=== PATIENT | female | born 1965 | race Caucasian/White ===

== ENCOUNTER 2016-07-07 22:10 | Emergency (ER) | payer OTHER ==
[~2016-07-07] VITALS: Ht 165.1 cm; Wt 86.2 kg
--- NOTE | 2016-07-08 01:24 | ED NECK/BACK PAIN COMPLAINT ---
History of Present Illness General Chief Complaint: General Adult Stated Complaint: "LT LOWER BACK PAIN RADIATES TO LT LEG X1DY" Source: patient Exam Limitations: no limitations Vital Signs & Intake/Output Vital Signs & Intake/Output Vital Signs Date Time Temp Pulse Resp B/P Pulse O2 O2 Flow FiO2 Ox Delivery Rate 07/08 0313 97.7 77 18 114/55 96 Room Air 07/08 0013 98.0 84 18 145/79 98 Room Air 07/07 2215 98.7 79 20 152/87 100 Room Air ED Intake and Output 07/08 0000 07/07 1200 Intake Total Output Total Balance Patient 190 lb Weight Allergies Coded Allergies: aspirin (Intermediate, HIVES 07/07/16) Reconcile Medications Diclofenac Sodium 75 MG TABLET.DR 1 TAB PO BID PRN PAIN Metaxalone (Skelaxin) 800 MG TABLET 1 TAB PO TID PRN BACK PAIN/SPASMS Oxycodone HCl/Acetaminophen (Percocet 5-325 MG Tablet) 5 MG-325 MG TABLET 1-2 TAB PO Q6P PRN pain Triage Note: TRIAGE: PT TO ER C/C L FLANK PAIN, ONSET YESTERDAY, INTERMITTENT SINCE ONSET BUT NOW CONSTANT X COUPLE HOURS. REPORTS "A LITTLE BIT OF NAUSEA" BUT DENIES VOMITING. -ABD PAIN. -URINARY S/S. REPORTS HX OF KIDNEY STONES, FEELS SIMILIAR. Triage Nurses Notes Reviewed? yes HPI: Patient presents for evaluation of a left lower back pain occasionally radiates to the posterior thigh. Patient's pain began rather abruptly yesterday. It has been constant severe and sharp and stabbing in nature. She tried Tylenol without relief. Patient's pain seems to get worse with lying down. There has been no associated fever, cold symptoms, incontinence, IV drug abuse, history of cancer or saddle paresthesias. The patient took Tylenol with no significant improvement (last dose about 6 PM). Pain continues here in the emergency department and is described as severe. Past History Travel History Traveled to [place] past 21 day No Medical History Any Pertinent Medical History? 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 No Review of Systems Review of Systems Constitutional: Reports: no symptoms. Eyes: Reports: no symptoms. Ears, Nose, Throat, Mouth: Reports: no symptoms. Respiratory: Reports: no symptoms. Cardiovascular: Reports: no symptoms. Gastrointestinal/Abdominal: Reports: no symptoms. Musculoskeletal: Reports: see HPI. Skin: Reports: no symptoms. Neurological/Psychological: Reports: no symptoms. All Other Systems: Reviewed and Negative Physical Exam Physical Exam Neck: SEE BELOW Comments: Gen.: Well-nourished, well-developed, no acute respiratory distress. Head: Normocephalic, atraumatic. Eyes: Normal inspection bilaterally Ears: Normal inspection bilaterally Nose: Normal inspection Throat/mouth : Moist mucosa Neck: Supple, full range of motion, no goiter Heart: Regular rate and rhythm Lungs: Quiet respirations Back: Normal range of motion with pain, mild tenderness over the left paraspinal musculature, nontender over the lumbosacral spine. No apparent rashes erythema or soft tissue swelling. Abdomen: Soft, nontender, nondistended, normal bowel sounds Extremities: Normal range of motion grossly, equal radial pulses, no cyanosis clubbing or edema. Lower extremities: Normal deep tendon reflexes, normal sensation to light touch, no straight leg raise sign bilaterally. No saddle paresthesias. Neurologic: Cranial nerves grossly intact, speech is clear Skin: warm and dry Psychiatric: Calm, cooperative, no apparent delusions or hallucinations Progress Differential Diagnosis: cauda equina syn, herniated disc, myofascial strain, sciatica, ureterolithiasis Plan of Care: Orders Procedure Date/time Status URINALYSIS 07/07 2235 Complete Laboratory Tests 07/07/16 2251: Urine Color YEL, Urine Clarity CLEAR, Urine pH 6.0, Ur Specific [place] 1.015, Urine Protein NEG, Urine Ketones NEG, Urine Nitrite NEG, Urine Bilirubin NEG, Urine Urobilinogen 0.2, Ur Leukocyte Esterase NEG, Ur Microscopic SEDIMENT EXAMINED, Urine RBC 1-3, Urine WBC RARE, Ur Epithelial Cells MOD H, Urine Hemoglobin MOD H, Urine Glucose NEG Diagnostic Imaging: Discussed w/RAD: CT Scan. Radiology Impression: PATIENT: CORNELIO ALMANZA PRESENT AGE: 51 PATIENT ACCOUNT NO: [id number] : 66 LOCATION: [facility] ORDERING PHYSICIAN: MORGAN ROUSSEAU MD SERVICE DATE: 07/08/16 EXAM TYPE: CAT - CT LUMB SPINE WO IV CONTRAST EXAMINATION: CT LUMBAR SPINE WITHOUT CONTRAST CLINICAL INFORMATION: Right low-back pain COMPARISON: None TECHNIQUE: Helical non- contrast CT images were obtained through the lumbar spine and 1.25 and 2.5 mm axial reconstructions were reviewed along with sagittal and coronal MPRs. DLP: 1174.72 mGy-cm FINDINGS: There is anatomic alignment of the lumbar vertebral bodies and posterior elements. There is partial lumbarization of S1. Vertebral body heights are maintained. Intervertebral disc spaces are relatively well- preserved. There is mild facet arthropathy bilaterally at L4-L5. There is moderate to severe left-sided facet nephropathy at L5-S1 and moderate facet arthropathy on the right at L5-S1. Slight disc protrusion is present at L4-L5, with slight central stenosis suspected. More prominent disc protrusion is noted at L5-S1 with suspected mild central stenosis, though the soft tissue structures are suboptimally assessed with CT. Left-sided foraminal stenosis is also suspected at L5-S1. No acute fracture is seen. The sacroiliac joints are intact with mild degenerative change. Visualized intrathoracic and intra-abdominal structures are grossly unremarkable. IMPRESSION: Partial lumbarization of S1. Disc protrusions at L4-L5 and L5-S1 along with facet arthropathy, more severe at L5-S1, with suspected mild central stenosis at these levels. Left foraminal stenosis is also suspected at L5-S1. Findings may be better assessed with MRI. DICTATED BY: GEORGES TAYLOR MD DATE/TIME DICTATED:07/08/16231 DENTAL PROFESSIONAL:AARON DATE/TIME TRANSCRIBED:07/08/16231 CONFIDENTIAL, DO NOT COPY WITHOUT APPROPRIATE AUTHORIZATION. <Electronically signed in Other Vendor System> SIGNED BY: GEORGES TAYLOR MD 07/08/16 0248 Comments: 07/08/2016 3:13:37 AM I have updated Cornelio on her test results. She is feeling better she is still having back pain. She has no fever, cold symptoms or use of IV drugs so I doubt abscess. She has urinary tract signs and symptoms and a prior kidney stone she has experienced was dissimilar to this so I doubt renal colic. She has no history of cancer so I doubt metastatic disease. In addition the CAT scan shows no masses. The CAT scan likewise shows no occult fractures. I feel the patient's back pain is secondary to the disc disease noted on CAT scan. Plan anti-inflammatory, muscle relaxer, pain medication and neurosurgical follow-up. Departure Departure Disposition: HOME OR SELF CARE Condition: Stable Clinical Impression Primary Impression: Lumbar disc disease with radiculopathy Referrals: PATIENT HAS NO PRIMARY CARE DR (PCP/Family) Additional Instructions: Rest, no exertion or heavy lifting. Medications as prescribed. Follow-up with Dr. Martines on Saturday for reevaluation of the lumbar disc disease seen on Scanning. Contact the [facility] practice and arrange for a general medical evaluation as soon as possible. Return if any concerns or sudden worsening. Please note that there might be incidental findings in your evaluation that are unrelated to the current emergency department visit. Please notify your primary care doctor about this emergency department visit in order to obtain and review all of the testing performed so that these incidental findings can be monitored as needed. If you had an x-ray performed, please understand that some fractures may not be seen on the initial set of x-rays. If your symptoms persist you might need a repeat set of x-rays to check for such a fracture. If you had a laceration evaluated, please understand that foreign bodies such as glass or wood may not be visible to the naked eye or on plain x-rays. If the wound becomes red, swollen, increasingly more painful or if there is any drainage from the wound, please have it reevaluated by a physician for the possibility of a retained foreign body. Thank you for choosing the [facility] Emergency Department for your care. It was a pleasure to serve you today. Morgan Rousseau M.D. [facility] Departure Forms: Customer Survey General Discharge Information Prescriptions: Current Visit Scripts Metaxalone (Skelaxin) 1 TAB PO TID PRN BACK PAIN/SPASMS #30 TAB Diclofenac Sodium 1 TAB PO BID PRN PAIN #14 TAB Oxycodone HCl/Acetaminophen (Percocet 5-325 MG Tablet) 1-2 TAB PO Q6P PRN pain #20 TAB
--- NOTE | 2016-07-08 02:48 | CT SCAN REPORT ---
EXAMINATION: CT LUMBAR SPINE WITHOUT CONTRAST CLINICAL INFORMATION: Right low-back pain COMPARISON: None TECHNIQUE: Helical non-contrast CT images were obtained through the lumbar spine and 1.25 and 2.5 mm axial reconstructions were reviewed along with sagittal and coronal MPRs. DLP: 1174.72 mGy-cm FINDINGS: There is anatomic alignment of the lumbar vertebral bodies and posterior elements. There is partial lumbarization of S1. Vertebral body heights are maintained. Intervertebral disc spaces are relatively well-preserved. There is mild facet arthropathy bilaterally at L4-L5. There is moderate to severe left-sided facet nephropathy at L5-S1 and moderate facet arthropathy on the right at L5-S1. Slight disc protrusion is present at L4-L5, with slight central stenosis suspected. More prominent disc protrusion is noted at L5-S1 with suspected mild central stenosis, though the soft tissue structures are suboptimally assessed with CT. Left-sided foraminal stenosis is also suspected at L5-S1. No acute fracture is seen. The sacroiliac joints are intact with mild degenerative change. Visualized intrathoracic and intra-abdominal structures are grossly unremarkable. IMPRESSION: Partial lumbarization of S1. Disc protrusions at L4-L5 and L5-S1 along with facet arthropathy, more severe at L5-S1, with suspected mild central stenosis at these levels. Left foraminal stenosis is also suspected at L5-S1. Findings may be better assessed with MRI.
[2016-07-08 03:13] VITALS: BP 114/55
[2016-07-08] MEDS ORDERED: PERCOCET 5-3251 EACH PO (03:18)
[2016-07-08] MEDS ORDERED: DICLOFENAC SODI75 M2 PO (03:18)
[2016-07-08] MEDS ORDERED: SKELAXIN800 M1 PO (03:18)
== END 2016-07-08 03:25 ==
LOC: ERH 22:10
DX: M51.16 Intervertebral disc disorders with radiculopathy, lumbar region (principal)
CPT/HCPCS: 81001; 96372; J1885

== ENCOUNTER 2017-08-24 16:58 | Inpatient (IN) | payer OTHER ==
[~2017-08-24] VITALS: Ht 165.1 cm; Wt 90.7 kg
[~2017-08-24 16:58] MED LIST: DICLOFENAC SODI75 M2 PO; IBUPROFEN600 M1 PO; LEVSIN-SL0.125 MG SL; PERCOCET 5-3251 EACH PO; SKELAXIN800 M1 PO; ZOFRAN ODT4 M1 SL
--- NOTE | 2017-08-24 17:29 | ED GI/GU/ABDOMINAL COMPLAINT ---
History of Present Illness General Chief Complaint: Fever Stated Complaint: L FOOT SWOLLEN/FEVER? Source: patient, old records Exam Limitations: no limitations Vital Signs & Intake/Output Vital Signs & Intake/Output Vital Signs Date Time Temp Pulse Resp B/P B/P Pulse O2 O2 Flow FiO2 Mean Ox Delivery Rate 08/24 2125 101.8 08/24 2044 100.5 08/24 2008 100.5 78 18 160/80 100 Room Air 08/24 1807 Room Air 08/24 1806 99.3 100 16 136/72 100 Room Air 08/24 1707 101.6 98 22 154/82 98 Allergies Coded Allergies: aspirin (Intermediate, HIVES 08/22/17) Reconcile Medications Diclofenac Sodium 75 MG TABLET.DR 1 TAB PO BID PRN PAIN Hyoscyamine Sulfate (Levsin-Sl) 0.125 MG TAB.SUBL 1-2 TAB SL Q4P PRN abdominal cramps Ibuprofen 600 MG TABLET 1 TAB PO Q6PRN PRN pain with food Metaxalone (Skelaxin) 800 MG TABLET 1 TAB PO TID PRN BACK PAIN/SPASMS Ondansetron (Zofran Odt) 4 MG TAB.RAPDIS 1 TAB SL TID PRN nausea Oxycodone HCl/Acetaminophen (Percocet 5-325 MG Tablet) 5 MG-325 MG TABLET 1-2 TAB PO Q6P PRN pain Triage Note: PER PT SEEN THE OHER NIGHT TO R/O APPENDICITIS, TODAY WHILE SHOPPING NOTED L FOOT SWOLLEN AND DIFF WALKING AND CHILLS AND FEVER MOTRIN 1 HR OPTA Triage Nurses Notes Reviewed? yes ? N Is pt currently ? No HPI: 52F no significant PMH, recently seen in ED 3 days ago for left sided abdominal pain, diagnosed with mesenteritis, given Bentyl and discharged home. Returns today with left foot pain and continued abdominal pain, found to be febrile 101 in triage. She also has been nauseous, but has had good PO intake. She denies vomiting, chest pain, SOB, headache, sore throat, diarrhea, constipation, bloody stool or urine. She does report urinary urgency and pressure for the past 2 days. She also reports 1 day of left foot pain, present on the dorsum and her heel. She does have a history of plantar fasciitis, and this is similar to that pain. Past History Travel History Traveled to [place] past 21 day No Medical History Any Pertinent Medical History? 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 No Review of Systems Review of Systems Constitutional: Reports: no symptoms. EENTM: Reports: no symptoms. Respiratory: Reports: no symptoms. Cardiovascular: Reports: no symptoms. GI: Reports: no symptoms. Genitourinary: Reports: no symptoms. Musculoskeletal: Reports: no symptoms. Skin: Reports: no symptoms. Neurological/Psychological: Reports: no symptoms. Hematologic/Endocrine: Reports: no symptoms. Immunologic/Allergic: Reports: no symptoms. All Other Systems: Reviewed and Negative Physical Exam Physical Exam General Appearance: well developed/nourished, no apparent distress Head: atraumatic, normal appearance Eyes: Bilateral: normal appearance. Ears, Nose, Throat, Mouth: hearing grossly normal, moist mucous membrane Neck: normal inspection, supple, full range of motion Respiratory: normal breath sounds, chest non-tender, no respiratory distress Cardiovascular: regular rate/rhythm Gastrointestinal: soft, LUQ tenderness, no rebound or guarding Back: normal inspection, normal range of motion Extremities: normal range of motion, Left foot is not swollen, no erythema, no tenderness or warmth Neurologic/Psych: awake, alert, oriented x 3, normal mood/affect Skin: intact, normal color, warm/dry Core Measures ACS in differential dx? No Sepsis Present: No Sepsis Focused Exam Completed? No Progress Differential Diagnosis: AAA, AMI, appendicitis, biliary colic, bowel obstruction , colon cancer, cholecystitis, diverticulitis, ectopic , endometritis, esophageal varices, gastritis, hepatitis, hernia, hemorrhoids, ischemic bowel, inflamm bowel dis, intrauterine , kidney stone, Jessica-Rob tear, ovarian cyst, ovarian torsion, pancreatitis, PID/cervicitis, peptic ulcer, PUD/ GERD, perforated viscous, SBO, threatened AB, UTI/pyelo Plan of Care: Orders Procedure Date/time Status Regular Diet 08/25 B Active LACTIC ACID 08/25 0047 Active ED Holding Orders 08/24 2216 Active Admit to inpatient 08/24 2216 Active Vital Signs 08/24 2216 Active Code Status 08/24 2216 Active BLOOD CULTURE 08/24 2146 Active LACTIC ACID 08/24 2146 Active RAPID VIRAL INFLUENZA A 08/24 183 Complete CULTURE,URINE 08/24 172 Active URINALYSIS 08/24 172 Complete LIPASE 08/24 172 Complete D-DIMER 08/24 172 Complete COMPREHENSIVE METABOLIC PANEL 08/25 1727 Complete CBC WITHOUT DIFFERENTIAL 08/25 1727 Complete Current Medications Sig/Nelson Start time Last Medication Dose Stop Time Status Admin Ampicillin Sodium/ 3,000 MG ONCE ONE 08/24 2214 UNVr Sulbactam Sodium 08/24 2244 (Unasyn) Sodium Chloride 100 ML (Normal Saline 0.9%) Laboratory Tests 08/24/172206: Lactic Acid Pending 08/24/171744: Urine Color YEL, Urine Clarity CLEAR, Urine pH 6.0, Ur Specific [place] 1.010, Urine Protein NEG, Urine Ketones NEG, Urine Nitrite NEG, Urine Bilirubin NEG, Urine Urobilinogen 0.2, Ur Leukocyte Esterase SMALL H, Ur Microscopic SEDIMENT EXAMINED, Urine RBC 1-3, Urine WBC 3-5 H, Ur Epithelial Cells MOD H, Urine Bacteria MANY H, Urine Hemoglobin MOD H, Urine Glucose NEG 08/24/17 174: Anion Gap 12, Estimated GFR > 60, BUN/Creatinine Ratio 28.3 H, Glucose 96, Calcium 9.2, Total Bilirubin 0.5, AST 17, ALT 18, Alkaline Phosphatase 65, Total Protein 8.0, Albumin 4.3, Globulin 3.7, Albumin/Globulin Ratio 1.2, Lipase 117, D-Dimer High Sensitivty < 200, CBC w Diff NO MAN DIFF REQ, RBC 4.03 L, MCV 88.5 , MCH 29.3, MCHC 33.1, RDW 12.9, MPV 7.5, Gran % 85.7 H, Lymphocytes % 8.3 L, Monocytes % 5.3, Eosinophils % 0.7, Basophils % 0, Absolute Granulocytes 13.0 H , Absolute Lymphocytes 1.3, Absolute Monocytes 0.8 H, Absolute Eosinophils 0.1, Absolute Basophils 0 Microbiology 08/24 2206 BLOOD: Blood Culture - RECD 08/24 2146 BLOOD: Blood Culture - ORD 08/24 185 NASOPHARYN: Influenza Virus A & B Rapid Smear - COMP 08/24 1744 URINE ROUT: Urine Culture - RECD Diagnostic Imaging: Viewed by Me: CT Scan. Discussed w/RAD: CT Scan. Radiology Impression: PATIENT: ONEL ALMANZA PRESENT AGE: 52 PATIENT ACCOUNT NO: [id number] : 66 LOCATION: [facility] ORDERING PHYSICIAN: Jerrica Reed MD SERVICE DATE: 08/24/17 EXAM TYPE: CAT - CT ABD & PELVIS W ORAL & IV CO EXAMINATION: CT ABDOMEN AND PELVIS WITH CONTRAST CLINICAL INFORMATION: Question colitis. Recent mesenteritis now with fever and white count. Left lower quadrant pain. COMPARISON: 08/22/2017 TECHNIQUE: Multidetector volumetric imaging was performed of the abdomen and pelvis following IV administration of 55 mL of Optiray 320 intravenous contrast. Sagittal and coronal reformatted images were obtained on the technologist's workstation. DLP: 449.74 mGy-cm FINDINGS: LUNG BASES: The visualized lung bases are unremarkable. LIVER, GALLBLADDER, AND BILIARY TREE: No focal liver lesions. No biliary duct dilatation. The gallbladder is unremarkable with no evidence of radiopaque gallstones, gallbladder wall thickening, or obvious pericholecystic inflammatory changes. PANCREAS: No acute inflammatory changes seen. SPLEEN: Unremarkable. ADRENAL GLANDS: Unremarkable. KIDNEYS AND URETERS: The kidneys are normal in size, shape, and attenuation. No hydronephrosis, hydroureter, or calculi seen. No perinephric stranding. BLADDER: Unremarkable. GASTROINTESTINAL TRACT: Nondistended large colon. There is gas and stool throughout the colon. No colonic wall thickening or pericolonic inflammatory changes are seen to suggest colitis. Normal caliber small bowel loops. The appendix is normal. No free fluid or free air. ABDOMINAL WALL: No significant hernia is appreciated. LYMPH NODES: Redemonstrated are multiple non-pathologically enlarged lymph nodes in the upper abdomen, with mild inflammatory fat stranding. This is unchanged from the recent study. VASCULAR: Normal caliber aorta. Portal vein is enhancing. PELVIC VISCERA: Within normal limits for CT. OSSEOUS STRUCTURES: Lumbar spine evaluation done on the dedicated CT lumbar spine. Please refer to the report. Minimal bilateral hip joint degeneration. Mild symphysis pubis degeneration. IMPRESSION: 1. Redemonstrated are multiple non-pathologically enlarged mesenteric lymph nodes in the upper abdomen, with mild fat stranding. This is unchanged from the recent study, is nonspecific, but could represent mesenteritis. 2. No acute findings seen within the abdomen or pelvis. 3. Lumbar spine evaluated on a dedicated CT, refer to that report. DICTATED BY: Emil Bishop MD DATE/TIME DICTATED:2132 SILK SNAPPER:AARON DATE/TIME TRANSCRIBED:08/24/172132, PATIENT: ONEL ALMANZA PRESENT AGE: 52 PATIENT ACCOUNT NO: [id number] : 67 LOCATION: [facility] ORDERING PHYSICIAN: Jerrica Reed MD SERVICE DATE: 08/24/17 EXAM TYPE: CAT - CT LUMB SPINE W IV CONTRAST EXAMINATION: CT LUMBAR SPINE WITH CONTRAST CLINICAL INFORMATION: 52- year-old woman with fever and L3 tenderness and pain. Evaluate for abscess/ discitis. COMPARISON: 07/08/[address] TECHNIQUE: Helical CT images were obtained through the lumbar spine following intravenous administration of 95 mL of Optiray 320. Several reconstructions were reviewed along with sagittal and coronal MPRs. DLP: 450 mGy-cm FINDINGS: There is transitional segment anatomy with right hemilumbarization of S1 and a rudimentary disc at the S1-S2 level. On sagittal reconstructions, vertebral bodies remain normal in height. Intervertebral disc spaces are preserved. The endplate cortices appear intact. Limited assessment of the paraspinal soft tissues reveals no evidence of a psoas abscess or significant paraspinal inflammatory stranding. T12-L1, L1-L2: The disc contours are normal, and the canal and foramina are widely patent. L2-L3, L3-L4: Disc bulges are eccentric to the right. The canal and foramina remain widely patent. L4-L5: There is a diffuse disc bulge, perhaps with a superimposed subtle left foraminal disc protrusion. The canal remains patent and the foramina are nonstenotic. L5-S1: There is a broad-based central disc protrusion. There has been prior right hemilaminectomy. There is moderate facet arthrosis, left greater than right. The canal remains patent. There is mild to moderate narrowing of the neural foramina, left greater than right. IMPRESSION: No convincing CT evidence of discitis/osteomyelitis or paraspinal infection. Multilevel spondylosis as described. DICTATED BY: Malika Cortés MD DATE/TIME DICTATED:08/24/172134 SILK SNAPPER:AARON DATE/TIME TRANSCRIBED:2134 Initial ED EKG: none Departure Departure Disposition: STILL A PATIENT Condition: Stable Clinical Impression Primary Impression: Sepsis Secondary Impressions: Left leg cellulitis Referrals: Patient Has No Primary Care Dr (PCP/Family) Departure Forms: Customer Survey General Discharge Information Admission Note Spoke With: Ramiro Albrecht MD Documentation of Exam: Documentation of any treatments & extenuating circumstances including Concerns Regarding Discharge (functional status, medication knowledge or non-compliance, living conditions, etc.) that warrant an admission rather than observation: MEETS SEPSIS CRITERIA, LLE CELLULITIS + MESENTERITIS WITH PROGRESSIVE SYMPTOMS CONCERNING FOR IMPENDING SEVERE SEPSIS, WILL ADMIT FOR IV ANTIBIOTICS, INFECTIOUS DISEASE CONSULT, LE DOPPLER
[2017-08-24 17:46] LABS: ABSOLUTE BASOPHIL COUNT 0 /CUMM (0.0-0.2); ABSOLUTE EOSINOPHIL COUNT 0.1 /CUMM (0.0-0.7); ABSOLUTE LYMPH COUNT 1.3 /CUMM (1.2-3.4); ABSOLUTE MONOCYTE COUNT 0.8 /CUMM (0.10-0.60); BASOPHIL % 0 % (0.0-2.0); EOSINOPHIL % 0.7 % (0-5); HEMATOCRIT 35.7 % (37-47); MEAN CORPUSCULAR HGB 29.3 PG (27.0-31.0); MEAN CORPUSCULAR HGB CONC 33.1 G/DL (33.0-37.0); MEAN CORPUSCULAR VOLUME 88.5 FL (81.0-99.0); MEAN PLATELET VOLUME 7.5 FL (7.4-10.4); PLATELET COUNT 278 /CUMM (130-400); RBC DISTRIBUTION WIDTH 12.9 % (11.5-14.5); RED BLOOD CELL CT 4.03 /CUMM (4.20-5.40)
[2017-08-24 17:48] LABS: GRANULOCYTE % 85.7 % (42.2-75.2); WHITE BLOOD CELL COUNT 15.2 /CUMM (4.8-10.8)
--- NOTE | 2017-08-24 21:46 | CT SCAN REPORT ---
EXAMINATION: CT LUMBAR SPINE WITH CONTRAST CLINICAL INFORMATION: 52-year-old woman with fever and L3 tenderness and pain. Evaluate for abscess/discitis. COMPARISON: 07/08/[address] TECHNIQUE: Helical CT images were obtained through the lumbar spine following intravenous administration of 95 mL of Optiray 320. Several reconstructions were reviewed along with sagittal and coronal MPRs. DLP: 450 mGy-cm FINDINGS: There is transitional segment anatomy with right hemilumbarization of S1 and a rudimentary disc at the S1-S2 level. On sagittal reconstructions, vertebral bodies remain normal in height. Intervertebral disc spaces are preserved. The endplate cortices appear intact. Limited assessment of the paraspinal soft tissues reveals no evidence of a psoas abscess or significant paraspinal inflammatory stranding. T12-L1, L1-L2: The disc contours are normal, and the canal and foramina are widely patent. L2-L3, L3-L4: Disc bulges are eccentric to the right. The canal and foramina remain widely patent. L4-L5: There is a diffuse disc bulge, perhaps with a superimposed subtle left foraminal disc protrusion. The canal remains patent and the foramina are nonstenotic. L5-S1: There is a broad-based central disc protrusion. There has been prior right hemilaminectomy. There is moderate facet arthrosis, left greater than right. The canal remains patent. There is mild to moderate narrowing of the neural foramina, left greater than right. IMPRESSION: No convincing CT evidence of discitis/osteomyelitis or paraspinal infection. Multilevel spondylosis as described.
--- NOTE | 2017-08-24 22:02 | CT SCAN REPORT ---
EXAMINATION: CT ABDOMEN AND PELVIS WITH CONTRAST CLINICAL INFORMATION: Question colitis. Recent mesenteritis now with fever and white count. Left lower quadrant pain. COMPARISON: 08/22/2017 TECHNIQUE: Multidetector volumetric imaging was performed of the abdomen and pelvis following IV administration of 55 mL of Optiray 320 intravenous contrast. Sagittal and coronal reformatted images were obtained on the technologist's workstation. DLP: 449.74 mGy-cm FINDINGS: LUNG BASES: The visualized lung bases are unremarkable. LIVER, GALLBLADDER, AND BILIARY TREE: No focal liver lesions. No biliary duct dilatation. The gallbladder is unremarkable with no evidence of radiopaque gallstones, gallbladder wall thickening, or obvious pericholecystic inflammatory changes. PANCREAS: No acute inflammatory changes seen. SPLEEN: Unremarkable. ADRENAL GLANDS: Unremarkable. KIDNEYS AND URETERS: The kidneys are normal in size, shape, and attenuation. No hydronephrosis, hydroureter, or calculi seen. No perinephric stranding. BLADDER: Unremarkable. GASTROINTESTINAL TRACT: Nondistended large colon. There is gas and stool throughout the colon. No colonic wall thickening or pericolonic inflammatory changes are seen to suggest colitis. Normal caliber small bowel loops. The appendix is normal. No free fluid or free air. ABDOMINAL WALL: No significant hernia is appreciated. LYMPH NODES: Redemonstrated are multiple non-pathologically enlarged lymph nodes in the upper abdomen, with mild inflammatory fat stranding. This is unchanged from the recent study. VASCULAR: Normal caliber aorta. Portal vein is enhancing. PELVIC VISCERA: Within normal limits for CT. OSSEOUS STRUCTURES: Lumbar spine evaluation done on the dedicated CT lumbar spine. Please refer to the report. Minimal bilateral hip joint degeneration. Mild symphysis pubis degeneration. IMPRESSION: 1. Redemonstrated are multiple non-pathologically enlarged mesenteric lymph nodes in the upper abdomen, with mild fat stranding. This is unchanged from the recent study, is nonspecific, but could represent mesenteritis. 2. No acute findings seen within the abdomen or pelvis. 3. Lumbar spine evaluated on a dedicated CT, refer to that report.
--- NOTE | 2017-08-24 22:21 | History & Physical ---
Mavis VILCHIS,Kwadwo 08/24/170: General Information and HPI MD Statement: I have seen and personally examined ONEL ALMANZA and documented this H&P. The patient is a 52 year old F who presented with a patient stated chief complaint of [intractable foot and back pain, fever]. Source of Information: patient Exam Limitations: no limitations History of Present Illness: Patient is a 52-year-old female with a PMH significant for nephrolithiasis, who comes in complaining of left lower back pain, left foot pain, fever. The symptoms began suddenly today she was walking in a store, she reports that foot pain 10/10 while bearing weight and had to resort to limping. She has chronic lower back pain secondary to lifting her daughter, however this pain is more severe. She took her own temperature at home and was elevated to 101.6. Review of systems positive for headache, she denies any chest pain, shortness of breath , nausea, vomiting. Of note patient was recently seen in the ED for throbbing abdominal pain and watery, nonbloody diarrhea 3 days prior to this admission. She was given Bentyl and sent home and the symptoms have resolved. Allergies/Medications Allergies: Coded Allergies: aspirin (Intermediate, HIVES 08/22/17) Home Med list Diclofenac Sodium 75 MG TABLET.DR 1 TAB PO BID PRN PAIN Hyoscyamine Sulfate (Levsin-Sl) 0.125 MG TAB.SUBL 1-2 TAB SL Q4P PRN abdominal cramps Ibuprofen 600 MG TABLET 1 TAB PO Q6PRN PRN pain with food Metaxalone (Skelaxin) 800 MG TABLET 1 TAB PO TID PRN BACK PAIN/SPASMS Ondansetron (Zofran Odt) 4 MG TAB.RAPDIS 1 TAB SL TID PRN nausea Oxycodone HCl/Acetaminophen (Percocet 5-325 MG Tablet) 5 MG-325 MG TABLET 1-2 TAB PO Q6P PRN pain Past History Travel History Traveled to [place] past 21 day No Medical History Neurological: NONE EENT: NONE Cardiovascular: NONE Respiratory: NONE Gastrointestinal: NONE Hepatic: NONE Renal: nephrolithiasis Musculoskeletal: NONE Psychiatric: NONE Endocrine: NONE Blood Disorders: NONE Cancer(s): NONE 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 Home Who Do You Live With? child Services at Home: None Primary Language: Sami Smoking Status: Never Smoked ETOH Use: occasional use Illicit Drug Use: denies illicit drug use Functional Ability ADLs Independent: dressing, eating, toileting, bathing. Ambulation: independent Review of Systems Review of Systems Constitutional: Reports: fever, malaise. Denies: chills, weakness. EENTM: Reports: no symptoms. Cardiovascular: Reports: no symptoms. Respiratory: Reports: no symptoms. GI: Reports: see HPI. Genitourinary: Reports: no symptoms. Musculoskeletal: Reports: see HPI, back pain. Skin: Reports: no symptoms. Neurological/Psychological: Reports: no symptoms. Hematologic/Endocrine: Reports: no symptoms. Date of LMP: 08/12/17 Exam & Diagnostic Data Last 24 Hrs of Vital Signs/I&O Vital Signs Date Time Temp Pulse Resp B/P B/P Pulse O2 O2 Flow FiO2 Mean Ox Delivery Rate 08/24 2252 101.2 08/25 2251 101.2 87 18 135/60 97 Room Air 08/24 2125 101.8 08/24 204 100.5 08/24 2009 100.5 78 18 160/80 100 Room Air 08/24 1807 Room Air 08/24 1806 99.3 100 16 136/72 100 Room Air 08/24 1707 101.6 98 22 154/82 98 Physical Exam General Appearance Alert, Oriented X3, Cooperative, No Acute Distress Skin Temp/Moisture Exam: Warm/Dry Sepsis Skin Exam (color): Flushed HEENT Atraumatic, PERRLA, EOMI, Mucous Membr. moist/pink Cardiovascular Regular Rate, Normal S1, Normal S2, systolic murmur Lungs Clear to Auscultation, Normal Air Movement Abdomen Normal Bowel Sounds, Soft, diffusely mild tenderness to palpation, worst in the RUQ Neurological Normal Speech, Normal Tone, Sensation Intact Extremities yellow scaling with fissures on dorsum of feet, worst on the R, L cloth printing back tender to palpation on the dorsal, lateral aspects of the foot as well as the heel Sepsis Peripheral Pulse Location: Radial Sepsis Peripheral Pulse Exam: Normal Sepsis Cap Refill Exam: <2 Sec Last 24 Hrs of Labs/Zackary: Laboratory Tests 08/25/17 0105: Lactic Acid 0.7 08/24/172206: Lactic Acid 1.3 08/24/171744: Urine Color YEL, Urine Clarity CLEAR, Urine pH 6.0, Ur Specific Lindsay 1.010, Urine Protein NEG, Urine Ketones NEG, Urine Nitrite NEG, Urine Bilirubin NEG, Urine Urobilinogen 0.2, Ur Leukocyte Esterase SMALL H, Ur Microscopic SEDIMENT EXAMINED, Urine RBC 1-3, Urine WBC 3-5 H, Ur Epithelial Cells MOD H, Urine Bacteria MANY H, Urine Hemoglobin MOD H, Urine Glucose NEG 08/24/17 174: Anion Gap 12, Estimated GFR > 60, BUN/Creatinine Ratio 28.3 H, Glucose 96, Calcium 9.2, Total Bilirubin 0.5, AST 17, ALT 18, Alkaline Phosphatase 65, Total Protein 8.0, Albumin 4.3, Globulin 3.7, Albumin/Globulin Ratio 1.2, Lipase 117, D-Dimer High Sensitivty < 200, CBC w Diff NO MAN DIFF REQ, RBC 4.03 L, MCV 88.5 , MCH 29.3, MCHC 33.1, RDW 12.9, MPV 7.5, Gran % 85.7 H, Lymphocytes % 8.3 L, Monocytes % 5.3, Eosinophils % 0.7, Basophils % 0, Absolute Granulocytes 13.0 H , Absolute Lymphocytes 1.3, Absolute Monocytes 0.8 H, Absolute Eosinophils 0.1, Absolute Basophils 0 Microbiology 08/24 2214 BLOOD: Blood Culture - RECD 08/24 2206 BLOOD: Blood Culture - RECD 08/24 1850 NASOPHARYN: Influenza Virus A & B Rapid Smear - COMP 08/24 1744 URINE ROUT: Urine Culture - RECD Diagnostic Data CXR Results unremarkable Other Results CT lumbar spine with IV contrast FINDINGS: There is transitional segment anatomy with right hemilumbarization of S1 and a rudimentary disc at the S1-S2 level. On sagittal reconstructions, vertebral bodies remain normal in height. Intervertebral disc spaces are preserved. The endplate cortices appear intact. Limited assessment of the paraspinal soft tissues reveals no evidence of a psoas abscess or significant paraspinal inflammatory stranding. T12-L1, L1-L2: The disc contours are normal, and the canal and foramina are widely patent. L2-L3, L3-L4: Disc bulges are eccentric to the right. The canal and foramina remain widely patent. L4-L5: There is a diffuse disc bulge, perhaps with a superimposed subtle left foraminal disc protrusion. The canal remains patent and the foramina are nonstenotic. L5-S1: There is a broad-based central disc protrusion. There has been prior right hemilaminectomy. There is moderate facet arthrosis, left greater than right. The canal remains patent. There is mild to moderate narrowing of the neural foramina, left greater than right. IMPRESSION: No convincing CT evidence of discitis/osteomyelitis or paraspinal infection. Multilevel spondylosis as described. CT abd/pelvis w/ contrast FINDINGS: LUNG BASES: The visualized lung bases are unremarkable. LIVER, GALLBLADDER, AND BILIARY TREE: No focal liver lesions. No biliary duct dilatation. The gallbladder is unremarkable with no evidence of radiopaque gallstones, gallbladder wall thickening, or obvious pericholecystic inflammatory changes. PANCREAS: No acute inflammatory changes seen. SPLEEN: Unremarkable. ADRENAL GLANDS: Unremarkable. KIDNEYS AND URETERS: The kidneys are normal in size, shape, and attenuation. No hydronephrosis, hydroureter, or calculi seen. No perinephric stranding. BLADDER: Unremarkable. GASTROINTESTINAL TRACT: Nondistended large colon. There is gas and stool throughout the colon. No colonic wall thickening or pericolonic inflammatory changes are seen to suggest colitis. Normal caliber small bowel loops. The appendix is normal. No free fluid or free air. ABDOMINAL WALL: No significant hernia is appreciated. LYMPH NODES: Redemonstrated are multiple non-pathologically enlarged lymph nodes in the upper abdomen, with mild inflammatory fat stranding. This is unchanged from the recent study. VASCULAR: Normal caliber aorta. Portal vein is enhancing. PELVIC VISCERA: Within normal limits for CT. OSSEOUS STRUCTURES: Lumbar spine evaluation done on the dedicated CT lumbar spine. Please refer to the report. Minimal bilateral hip joint degeneration. Mild symphysis pubis degeneration. IMPRESSION: 1. Redemonstrated are multiple non-pathologically enlarged mesenteric lymph nodes in the upper abdomen, with mild fat stranding. This is unchanged from the recent study, is nonspecific, but could represent mesenteritis. 2. No acute findings seen within the abdomen or pelvis. Assessment/Plan Assessment: Patient is a 52-year-old female with a PMH significant for nephrolithiasis, who comes in complaining of left lower back pain, left foot pain, fever. The symptoms began suddenly today she was walking in a store, she reports that foot pain 10/10 while bearing weight and had to resort to limping. Imaging showing nonpathologic mesenteric lymphadenopathy present since previous ED visit, CT lumbar spine showed no discitis. Lenses significant for leukocytosis. Vital signs on presentation: T101.6, pulse 98, RR 22, BP 144/82, pulse ox 98% on room air Labs ON admission significant for: Leukocytosis, UA showing epithelial cells and bacteria (not a good sample) Problem list #Leukocytosis and fever, possible cellulitis of the left foot with fissures in the skin possibly acting sedative infection, other possible differentials include autoimmune less likely UTIs patient is asymptomatic #Persistent nonpathologic mesenteric lymphadenopathy Plan -Admit to general medicine -Continue IV Unasyn -Follow-up blood and urine cultures -Ultrasound of soft tissue left foot, consider x-ray if pain not improving -Follow-up ESR, CRP, uric acid, TSH and free T4 -Adequate pain control Diet: Regular diet DVT prophylaxis: Lovenox, Alps CODE STATUS: Full code As Ranked By This Provider Problem List: 1. Leukocytosis 2. Fever Core Measures/Misc (02/10) Acute Coronary Syndrome ACS Diagnosis: No Congestive Heart Failure Congestive Heart Failure Diagnosis No Cerebrovascular Accident CVA/TIA Diagnosis: No VTE (View Protocol) VTE Risk Factors Age>40 No Mechanical VTE Prophylaxis d/t N/A MechProphylax Ordered No VTE Pharm Prophylaxis d/t NA PharmProphylax ordered Sepsis (View protocol) Sepsis Present: No Tacos Terrell 08/24/17 0057: Resident Review Statement Resident Statement: examined this patient, discussed with consumer insights intern, agreed with consumer insights intern, reviewed images Other Findings: 52-year-old woman past medical history significant for nephrolithiasis, currently not on regular meds and not followed up with PCP in 4-5 years. Was seen in the ED 3 days ago for left-sided abdominal pain and was discharged on Bentyl. Return to ED today for continued abdominal pain and left foot pain. On the patient started having mid abdominal pain which was sharp and throbbing some radiation to the back, associated with a few episodes of non- bloody diarrhea and nausea. She came to the ED and was discharged on Bentyl after which she set her symptoms improved. Today when she was in [employer] she started to experience left foot pain and lower back pain associated with fever. Her left foot pain was significant enough to cause her difficulty with walking and bearing weight. When she bears weight she states that the pain is 10 out of 10. On interview endorses some headache. Last menstrual period was 2 weeks ago. Denies chills, sore throat, cough, similar episodes in the past, chest pain, shortness of breath, palpitations, nausea, vomiting, diarrhea, constipation, urinary sumptoms, abdominal pain, lower extremity swelling, rashes, trauma, other joint involvement or numbness or tingling of extremities. Vitals on admission MAXIMUM TEMPERATURE 101.8, heart rate 78, respiratory rate 18, blood pressure 160/80, saturating 100% on room air On examination she is alert oriented,skin looks flushed in the face. No rashes noted. RS clear to auscultation, CVS S1-S2 with systolic murmur heard in aortic area. Abdomen soft, diffuse tenderness to palpation. No guarding rigidity or rebound tenderness noted. Musculoskeletal no joint swelling redness noted. Pain on left foot dorsiflexion, some mild swelling noted on the dorsum of the left foot. Skin fissures noted bilateral plantar aspect. Labs significant for WBC 15.2, hemoglobin 11.8, hematocrit 35.7, platelet 278 normal electrolyte panel, UA shows some mild positive leukocyte esterase CT ABDOMEN AND PELVIS WITH CONTRAST 1. Redemonstrated are multiple non-pathologically enlarged mesenteric lymph nodes in the upper abdomen, with mild fat stranding. This is unchanged from the recent study, is nonspecific, but could represent mesenteritis. 2. No acute findings seen within the abdomen or pelvis. CT LUMB SPINE W IV CONTRAST No convincing CT evidence of discitis/osteomyelitis or paraspinal infection. Multilevel spondylosis assessement: meets SIRS criteria, unclear etiology of her fever ? viral gasteroenteritis/mesenteritis vs left foot cellulitis (not clinically evident at this time) Plan: Admit to general medicine floor, vitals per protocol Was given IV Unasyn in the ED, will continue on unasyn, pending blood/urine cultures IVF at 125cc Ultrasound of left foot to evaluate for enthesopathy CXR to r/o lung pathology Follow-up ESR CRP, uric acid and TSH regular diet pain control with ibuprofen and percocet DVT prophylaxis with subcutaneous Lovenox Full code Ramiro Albrecht MD 08/25/17 0055: Attending MD Review Statement Attending Statement Attending MD Statement: examined this patient, discuss w/resident/PA/SWITCH COUPLER, agreed w/resident/PA/SWITCH COUPLER, reviewed EMR data (avail) Attending Assessment/Plan: Ms. 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 The abdominal pain has been going on for the past 3 days, located mainly in the left upper quadrant, however present diffusely throughout the abdomen. Patient was recently seen in the ED 3 days ago with complaints of diarrhea and abdominal pain, discharged with Bentyl. Symptoms of diarrhea have resolved now. Left foot pain started 1 day ago, located specifically in the left lateral dorsum of the foot. Does not walk barefooted. Associated symptoms include low back pain On examination, patient is febrile with a maximum temperature of 101.8 blood pressure of 160/80 heart rate of 78 respiratory rate of 18. Patient is alert oriented 3, flushed. 2 x 6 ejection systolic murmur heard in all 4 areas, lungs clear to auscultation, abdomen diffusely tender all over bowel sounds present, left lateral part of the dorsum of the foot focal tenderness present with warmth and erythema, no focal neurological deficits identified. CT abdomen shows multiple non-pathologically enlarged mesenteric lymph nodes in the upper abdomen, with mild fat stranding. CT lumbar spine shows no convincing CT evidence of discitis/osteomyelitis or paraspinal infection. Multilevel spondylosis as described Assessement 1. Fever with leucocytosis - DD - cellulitis vs autoimmune vs inf. endo. vs UTI 2. Left lower extremity soft tissue infection -? Cellulitis 3. Abdominal pain with evidence of non specific lymphadenopathy 4. Asymptomatic bacteriuria Plan Trend fever curve. Continue with IV Unasyn. Blood and urine cultures sent Patient appears dehydrated and continuing IV fluids till in the morning. Ultrasound soft tissues of the left foot. Obtain ESR and CRP and uric acid. Tylenol for fever. Consider ID consult in AM if persistent fever is present CT of the Head and Neck if persistent headache present
--- NOTE | 2017-08-25 00:35 | RADIOLOGY REPORT ---
EXAMINATION: XR CHEST CLINICAL INFORMATION: Fever. COMPARISON: None TECHNIQUE: 2 views of the chest were obtained. FINDINGS: Lungs are clear. No pulmonary vascular congestion. There is no pleural effusion. The heart size is normal. The cardiac and mediastinal contours are normal. There are multilevel degenerative changes of dorsal spine. IMPRESSION: Unremarkable examination.
[2017-08-25 01:14] VITALS: BP 128/70
[2017-08-25 06:30] VITALS: BP 108/70
--- NOTE | 2017-08-25 08:26 | PN- Housestaff ---
Jl Bello 08/25/17 0825: Subjective Follow-up For: Left lower extremity Cellulitis Subjective: No complaints or acute events overnight Review of Systems Constitutional: Reports: see HPI. Objective Last 24 Hrs of Vital Signs/I&O Vital Signs Date Time Temp Pulse Resp B/P B/P Pulse O2 O2 Flow FiO2 Mean Ox Delivery Rate 08/25 0630 98.4 76 18 108/70 97 Room Air 08/25 0114 99.4 100 22 128/70 96 Room Air 08/24 2347 100.8 08/24 2252 101.2 08/25 2251 101.2 87 18 135/60 97 Room Air 08/24 2125 101.8 08/24 2044 100.5 08/24 2008 100.5 78 18 160/80 100 Room Air 08/24 180 Room Air 08/24 1806 99.3 100 16 136/72 100 Room Air 08/24 1707 101.6 98 22 154/82 98 Intake & Output 08/25 1600 08/25 0800 08/25 0000 Intake Total 850 Output Total Balance 850 Intake, IV 750 Intake, Oral 100 Patient 200 lb 165 lb Weight Weight Bed scale Measurement Method Physical Exam General Appearance: Alert, Oriented X3, Cooperative, No Acute Distress Cardiovascular: Regular Rate, Normal S1, Normal S2 Lungs: Clear to Auscultation, Normal Air Movement Extremities: LLE swelling and skin erythema Current Medications: Current Medications Sig/Nelson Start time Last Medication Dose Route Stop Time Status Admin Acetaminophen 0 .STK-MED ONE 08/24 2048 DC PO Acetaminophen 650 MG ONCE ONE 08/24 2044 DC 08/24 PO 08/24 Ampicillin Sodium/ 3,000 MG Q6 08/25 0600 AC 08/25 Sulbactam Sodium IV 1204 Sodium Chloride 100 ML Ampicillin Sodium/ 0 .STK-MED ONE 08/24 2228 DC Sulbactam Sodium .ROUTE Ampicillin Sodium/ 3,000 MG ONCE ONE 08/24 2214 DC 08/24 Sulbactam Sodium IV 08/24 Sodium Chloride 100 ML Enoxaparin Sodium 40 MG DAILY 08/25 1000 AC 08/25 SC 0923 Ibuprofen 600 MG Q4P PRN 08/25 0015 AC 08/25 PO 0540 Ibuprofen 0 .STK-MED ONE 08/24 2244 DC PO Ibuprofen 600 MG ONCE ONE 08/24 2229 DC 08/24 PO 08/241 2253 Ondansetron HCl 4 MG ONCE ONE 08/25 914 DC 08/25 IV 08/25 0816 0923 Oxycodone/ 1 TAB Q6P PRN 08/25 0015 AC 08/25 Acetaminophen PO 0128 Sodium Chloride 1,000 ML ONCE ONE 08/25 0045 DC 08/25 IV 08/25 0844 0054 Last 24 Hrs of Lab/Zackary Results Last 24 Hrs of Labs/Mics: Laboratory Tests 08/25/17 0744: Anion Gap 11, Estimated GFR > 60, BUN/Creatinine Ratio 17.1, Uric Acid 4.0, C- Reactive Prot, Quant 7.4 H, C-React Prot High Sens > 15.0 H, TSH 1.250, Free T4 1.10, CBC w Diff NO MAN DIFF REQ, RBC 3.67 L, MCV 88.7, MCH 29.6, MCHC 33.3, RDW 12.9, MPV 7.9, Gran % 78.8 H, Lymphocytes % 11.5 L, Monocytes % 9.3, Eosinophils % 0.1, Basophils % 0.3, Absolute Granulocytes 8.0 H, Absolute Lymphocytes 1.2, Absolute Monocytes 0.9 H, Absolute Eosinophils 0, Absolute Basophils 0, ESR Westergren 40 H 08/25/17 0105: Lactic Acid 0.7 08/24/17 2207: Lactic Acid 1.3 08/24/17 1745: Urine Color YEL, Urine Clarity CLEAR, Urine pH 6.0, Ur Specific [place] 1.010, Urine Protein NEG, Urine Ketones NEG, Urine Nitrite NEG, Urine Bilirubin NEG, Urine Urobilinogen 0.2, Ur Leukocyte Esterase SMALL H, Ur Microscopic SEDIMENT EXAMINED, Urine RBC 1-3, Urine WBC 3-5 H, Ur Epithelial Cells MOD H, Urine Bacteria MANY H, Urine Hemoglobin MOD H, Urine Glucose NEG 08/24/17 1740: Anion Gap 12, Estimated GFR > 60, BUN/Creatinine Ratio 28.3 H, Glucose 96, Calcium 9.2, Total Bilirubin 0.5, AST 17, ALT 18, Alkaline Phosphatase 65, Total Protein 8.0, Albumin 4.3, Globulin 3.7, Albumin/Globulin Ratio 1.2, Lipase 117, D-Dimer High Sensitivty < 200, CBC w Diff NO MAN DIFF REQ, RBC 4.03 L, MCV 88.5 , MCH 29.3, MCHC 33.1, RDW 12.9, MPV 7.5, Gran % 85.7 H, Lymphocytes % 8.3 L, Monocytes % 5.3, Eosinophils % 0.7, Basophils % 0, Absolute Granulocytes 13.0 H , Absolute Lymphocytes 1.3, Absolute Monocytes 0.8 H, Absolute Eosinophils 0.1, Absolute Basophils 0 Microbiology 08/24 221 BLOOD: Blood Culture - RES 08/24 2206 BLOOD: Blood Culture - RES 08/24 1850 NASOPHARYN: Influenza Virus A & B Rapid Smear - COMP 08/24 1745 URINE ROUT: Urine Culture - RES Assessment/Plan Assessment: Ms. Garcia is a 52-year-old female with a PMH significant for nephrolithiasis, who comes in complaining of left lower back pain, left foot pain, fever Problem list: Left lower extremity Cellulitis Plan: Continue with IV Unasyn Await final cultures Continue Percocet for LLE pain LLE doppler without evidence of deep venous thrombosis Diet: Regular DVT ppx: Lovenox Code: FULL Problem List: 1. 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 She was recently seen in the ER for abdominal pain that showed multiple nonpathological enlarged mesenteric lymph nodes in the upper abdomen with mild fat stranding and was discharged home. CT lumbar spine that was done for her back pain showed no convincing evidence of discitis/osteomyelitis or paraspinal infection. Patient was started on IV Unasyn for possible cellulitis to which she responded very well and her white count improved from 15.2-10.1 and became afebrile. Patient was seen and examined on the bedside, afebrile and in not in any distress. Examination of the left foot shows mild erythema and redness/point on the lateral border of the left foot with eczema and multiple skin lacerations. We'll do an ultrasound of the left lower extremity to rule her out for any DVT. Given the patient has responded to antibiotics will continue the same and will titrate it/narrowed down on the results of her cultures and sensitivity. DVT prophylaxis and will follow up with the health information specialist on discharge.
[2017-08-25 09:02] LABS: ABSOLUTE BASOPHIL COUNT 0 /CUMM (0.0-0.2); ABSOLUTE EOSINOPHIL COUNT 0 /CUMM (0.0-0.7); ABSOLUTE LYMPH COUNT 1.2 /CUMM (1.2-3.4); ABSOLUTE MONOCYTE COUNT 0.9 /CUMM (0.10-0.60); BASOPHIL % 0.3 % (0.0-2.0); EOSINOPHIL % 0.1 % (0-5); GRANULOCYTE % 78.8 % (42.2-75.2); HEMATOCRIT 32.6 % (37-47); MEAN CORPUSCULAR HGB 29.6 PG (27.0-31.0); MEAN CORPUSCULAR HGB CONC 33.3 G/DL (33.0-37.0); MEAN CORPUSCULAR VOLUME 88.7 FL (81.0-99.0); MEAN PLATELET VOLUME 7.9 FL (7.4-10.4); PLATELET COUNT 216 /CUMM (130-400); RBC DISTRIBUTION WIDTH 12.9 % (11.5-14.5); RED BLOOD CELL CT 3.67 /CUMM (4.20-5.40); WHITE BLOOD CELL COUNT 10.1 /CUMM (4.8-10.8)
--- NOTE | 2017-08-25 12:29 | ULTRASOUND REPORT ---
EXAMINATION: US TRIPLEX LOWER EXTREMITY, LEFT CLINICAL INFORMATION: There is a 52-year-old female with left leg pain. Possible deep vein thrombosis. COMPARISON: None TECHNIQUE: Color-flow triplex imaging with spectral analysis and compression Doppler were performed on the lower extremity. FINDINGS: Respiratory variation, normal compression and augmented flow are noted throughout the lower extremity. The visualized common femoral vein, superficial femoral vein, profunda femoral vein, popliteal vein and midcalf peroneal and posterior tibial venous segments show no evidence of deep venous thrombosis. There is no Wagoner's cyst. IMPRESSION: Normal triplex scan without evidence of deep venous thrombosis involving the lower extremity.
[2017-08-25 13:52] VITALS: BP 126/64
[2017-08-25 22:03] VITALS: BP 120/76
[2017-08-26 06:44] VITALS: BP 120/80
--- NOTE | 2017-08-26 07:15 | PN- Housestaff ---
Jl Bello 08/26/17 0714: Subjective Follow-up For: Left lower extremity Cellulitis Subjective: Patient reports she is not feeling well and feverish. T max 99. She also reports L foot pain and unable to bear any weight on it. Review of Systems Constitutional: Reports: see HPI. Objective Last 24 Hrs of Vital Signs/I&O Vital Signs Date Time Temp Pulse Resp B/P B/P Pulse O2 O2 Flow FiO2 Mean Ox Delivery Rate 08/26 0644 98.0 80 20 120/80 97 Room Air 08/25 2203 99.0 85 20 120/76 97 Room Air 08/25 1551 96 Room Air 08/25 1352 97.8 84 20 126/64 7 Intake & Output 08/26 0800 08/26 0000 08/25 1600 Intake Total 930 Output Total Balance 930 Intake, IV 130 Intake, Oral 800 Physical Exam General Appearance: Alert, Oriented X3, Cooperative, No Acute Distress Cardiovascular: Regular Rate, Normal S1, Normal S2, No Murmurs Lungs: Clear to Auscultation, Normal Air Movement Abdomen: Normal Bowel Sounds, Soft, No Tenderness Extremities: L heel pain on palpation, trace swelling Current Medications: Current Medications Sig/Nelson Start time Last Medication Dose Route Stop Time Status Admin Ampicillin Sodium/ 3,000 MG Q6 08/25 0600 AC 08/26 Sulbactam Sodium IV 0557 Sodium Chloride 100 ML Enoxaparin Sodium 40 MG DAILY 08/25 1000 AC 08/25 SC 0923 Ibuprofen 600 MG Q4P PRN 08/25 0015 AC 08/26 PO 0100 Ondansetron HCl 4 MG ONCE ONE 08/25 0915 DC 08/25 IV 08/25 0916 0923 Oxycodone/ 1 TAB Q6P PRN 08/25 0015 08/25 Acetaminophen PO 1921 Sodium Chloride 1,000 ML ONCE ONE 08/25 0045 DC 08/25 IV 08/25 0844 0054 Last 24 Hrs of Lab/Zackary Results Last 24 Hrs of Labs/Mics: Laboratory Tests 08/26/17 0807: Anion Gap 10, Estimated GFR > 60, BUN/Creatinine Ratio 15.0, CBC w Diff NO MAN DIFF REQ, RBC 3.49 L, MCV 89.4, MCH 29.6, MCHC 33.2, RDW 13.6, MPV 7.7, Gran % 56.0, Lymphocytes % 27.6, Monocytes % 14.7 H, Eosinophils % 1.4, Basophils % 0.3, Absolute Granulocytes 5.0, Absolute Lymphocytes 2.4, Absolute Monocytes 1.3 H, Absolute Eosinophils 0.1, Absolute Basophils 0 Assessment/Plan Assessment: Ms. Garcia is a 52-year-old female with a PMH significant for nephrolithiasis, who comes in complaining of left lower back pain, left foot pain, fever Problem list: Left lower extremity Cellulitis Plan: Continue with IV Unasyn, will transition to Augmentin to complete total of 10 days Await final cultures Continue Percocet for LLE pain LLE doppler without evidence of deep venous thrombosis Possible discharge in morning Diet: Regular DVT ppx: Lovenox Code: FULL Problem List: 1. Left leg cellulitis Pain Ratin Pain Location: R foot Pain Goal: Pain 4 or less Pain Plan: Oxycodone Tomorrow's Labs & Rationales: none Katarina Masterson MD 08/26/17 1122: Attending MD Review Statement Attending Statement Attending MD Statement: examined this patient, discuss w/resident/PA/ACQUISITION ANALYST, agreed w/resident/PA/ACQUISITION ANALYST, reviewed EMR data (avail), discussed with nursing, discussed with case mgmt, amended to note Attending Assessment/Plan: Patient seen and examined. Resting comfortably and did not appear to be in any acute distress. She however reports that she continues to experience left heel pain with difficulty ambulating. She continues to require analgesics medication. She is afebrile. She is hemodynamically stable. Leukocytosis present on admission has resolved. On examination she was reported to have erythema involving the left foot spreading to above the ankle. This has completely resolved. There is no foot swelling. There is no open area. There is no discoloration of the extremity. Dorsalis pedis pulse palpable. There is no heel swelling though she does report some tenderness on examination. She reports that her abdominal pain has resolved. Denies nausea vomiting. Tolerating her meals. There is no tenderness on abdominal examination. There is no palpable swelling. Problems: 1. Left foot cellulitis; resolving 2. Abdominal pain; resolved 3. Nonspecific mesenteric lymph node enlargement; non-pathologically enlarged per CT report. Plan: Plan: -Colitis is improving however she continues to complain of left foot pain. This is improved compared to presentation according to the patient. We will continue IV antibiotics and monitor for further improvement of her pain. If she continues to do well remaining afebrile hemodynamically stable she may be discharged tomorrow. For now we will monitor further for improvement of her pain. -Abdominal pain has resolved. Etiology is unclear. Nonspecific mesenteric enlarged lymph nodes. Recommend following up in the outpatient setting. Recommend referral to the GI service as an outpatient for further evaluation and age-appropriate colonoscopy screening. Provide patient with referral for outpatient primary care provider. -Repeat CBCs in a.m. to ensure leukocytosis remains normal. No indication to repeat serum chemistry at this time.
[2017-08-26 08:48] LABS: ABSOLUTE BASOPHIL COUNT 0 /CUMM (0.0-0.2); ABSOLUTE EOSINOPHIL COUNT 0.1 /CUMM (0.0-0.7); ABSOLUTE LYMPH COUNT 2.4 /CUMM (1.2-3.4); ABSOLUTE MONOCYTE COUNT 1.3 /CUMM (0.10-0.60); BASOPHIL % 0.3 % (0.0-2.0); EOSINOPHIL % 1.4 % (0-5); HEMATOCRIT 31.2 % (37-47); MEAN CORPUSCULAR HGB 29.6 PG (27.0-31.0); MEAN CORPUSCULAR HGB CONC 33.2 G/DL (33.0-37.0); MEAN CORPUSCULAR VOLUME 89.4 FL (81.0-99.0); MEAN PLATELET VOLUME 7.7 FL (7.4-10.4); PLATELET COUNT 203 /CUMM (130-400); RBC DISTRIBUTION WIDTH 13.6 % (11.5-14.5); RED BLOOD CELL CT 3.49 /CUMM (4.20-5.40); WHITE BLOOD CELL COUNT 8.9 /CUMM (4.8-10.8)
[2017-08-26 14:28] VITALS: BP 120/90
--- NOTE | 2017-08-26 17:01 | RADIOLOGY REPORT ---
EXAMINATION: XR FOOT, LEFT CLINICAL INFORMATION: Pain COMPARISON: None TECHNIQUE: 4 views of the left foot. FINDINGS: There is no acute fracture or dislocation in the left foot. There is a moderately large accessory ossicle adjacent to the medial aspect of the tarsal navicular which can sometimes be associated with pain. There is a large posterior calcaneal spur and a small plantar calcaneal spur. No other bony or joint space abnormality is seen in the left foot. IMPRESSION: No acute fracture or dislocation. Large accessory ossicle adjacent to the medial aspect of the tarsal navicular Plantar and posterior calcaneal spurs.
[2017-08-26 22:29] VITALS: BP 120/70
[2017-08-27 06:25] VITALS: BP 130/68
--- NOTE | 2017-08-27 07:17 | PN- Housestaff ---
Jl Bello 08/27/17 0717: Subjective Follow-up For: Left lower extremity Cellulitis Plantar and calcaneal bony spurs Abdominal pain Subjective: Patient reports persistent pain in the L heel, 5/10 in severity and foot swelling. Review of Systems Constitutional: Reports: see HPI. Objective Last 24 Hrs of Vital Signs/I&O Vital Signs Date Time Temp Pulse Resp B/P B/P Pulse O2 O2 Flow FiO2 Mean Ox Delivery Rate 08/27 0625 97.7 72 18 130/68 97 Room Air 08/26 2229 98.2 70 18 120/70 98 Room Air 08/26 1428 98.2 71 18 120/90 98 Room Air Intake & Output 08/27 1600 08/27 0800 08/27 0000 Intake Total 540 850 Output Total Balance 540 850 Intake, IV 300 250 Intake, Oral 240 600 Physical Exam General Appearance: Alert, Oriented X3, Cooperative, No Acute Distress Cardiovascular: Regular Rate, Normal S1, Normal S2 Lungs: Clear to Auscultation, Normal Air Movement Abdomen: Normal Bowel Sounds, Soft, No Tenderness Extremities: L ankle and foot warmth, swelling and tenderness on palpation Current Medications: Current Medications Sig/Nelson Start time Last Medication Dose Route Stop Time Status Admin Ampicillin Sodium/ 3,000 MG Q6 08/25 0600 AC 08/27 Sulbactam Sodium IV 0510 Sodium Chloride 100 ML Docusate Sodium 100 MG DAILY 08/27 1000 AC 08/27 PO 0934 Enoxaparin Sodium 40 MG DAILY 08/25 1000 AC 08/27 SC 0935 Ibuprofen 600 MG Q6P PRN 08/26 1430 AC 08/26 PO 1548 Ibuprofen 600 MG Q4P PRN 08/25 0015 AC 08/27 PO 0105 Omeprazole 40 MG DAILY AC 08/27 0757 AC 08/27 PO 0935 Ondansetron HCl 4 MG Q6-PRN PRN 08/26 1400 AC 08/26 PO 1352 Oxycodone/ 1 TAB Q6P PRN 08/25 0015 AC 08/26 Acetaminophen PO 0814 Senna/Docusate Sodium 2 TAB DAILY 08/26 1000 AC 08/27 PO 0935 Last 24 Hrs of Lab/Zackary Results Last 24 Hrs of Labs/Mics: Laboratory Tests 08/27/17 0647: CBC w Diff NO MAN DIFF REQ, RBC 3.49 L, MCV 89.1, MCH 30.0, MCHC 33.7, RDW 13.1 , MPV 8.0, Gran % 51.6, Lymphocytes % 33.6, Monocytes % 11.7 H, Eosinophils % 2.6, Basophils % 0.5, Absolute Granulocytes 4.5, Absolute Lymphocytes 2.9, Absolute Monocytes 1.0 H, Absolute Eosinophils 0.2, Absolute Basophils 0 Assessment/Plan Assessment: Ms. Garcia is a 52-year-old female with a PMH significant for nephrolithiasis, who comes in complaining of left lower back pain, left foot pain, fever Problem list: Left lower extremity Cellulitis Plantar and calcaneal bony spurs Abdominal pain Plan: Continue with IV Unasyn, will transition to Augmentin to complete total of 10 days No growth on cultures Continue Ibuprofen for LLE swelling and pain LLE doppler without evidence of deep venous thrombosis Discharge today with follow up to Podiatry, Ortho, GI [place] off loading boot prescribe upon discharge Diet: Regular DVT ppx: Lovenox Code: FULL Problem List: 1. Left foot pain 2. Abdominal pain 3. Left leg cellulitis 4. Bone spur of left foot Pain Ratin Pain Location: L heel Pain Goal: Pain 4 or less Pain Plan: Ibuprofen Tomorrow's Labs & Rationales: none Katarina Masterson MD 08/27/17 1043: Attending MD Review Statement Attending Statement Attending MD Statement: examined this patient, discuss w/resident/PA/SKOOG OPERATOR, agreed w/resident/PA/SKOOG OPERATOR, reviewed EMR data (avail), discussed with nursing, discussed with case mgmt, amended to note Attending Assessment/Plan: Patient seen and examined. She reports her pain has improved with use of ibuprofen although it is still present. She remains afebrile with no leukocytosis on her labs. On examination she has no erythema with mild swelling of the left foot. X-ray done yesterday shows evidence of calcaneal spurs. Case was discussed with the podiatry service. Recommendations by Jose Mustafa DPM that patient may be discharged home on anti-inflammatory therapy to follow-up with him in the outpatient setting. She will be prescribed a boot to help reduce weightbearing. We will continue antibiotic therapy to complete 10 days for cellulitis as she presented with fever and leukocytosis. She denies any abdominal complaints. Denies nausea vomiting. Tolerating her meals. She has also been referred to follow-up with the GI service as an outpatient for further monitoring of CT findings and scheduling of age-appropriate colonoscopy screening. These have all been discussed with the patient in detail. She verbalized understanding.
--- NOTE | 2017-08-27 08:02 | Patient Discharge Instructions ---
Discharge Instructions General Discharge Information You were seen/treated for: Left lower extremity cellulitis You had these procedures: none Special Instructions: Follow up with your PCP within 1-2 weeks of discharge Follow up with Podiatry upon discharge If symptoms get worse follow up with Ortho as an outpatient Follow up with the evs manager if the abdominal pain resumes Diet Continue normal diet: Yes Activity Other activity limits: As tolerated Acute Coronary Syndrome Inclusion Criteria At DC or during hospital stay patient has or had the following: ACS DIAGNOSIS No Discharge Core Measures Meds if any: Prescribed or Continued at Discharge Meds if any: NOT Prescribed or Continued at Discharge Congestive Heart Failure Inclusion Criteria At DC or during hospital stay patient has or had the following: CHF DIAGNOSIS No Discharge Core Measures Meds if any: Prescribed or Continued at Discharge Meds if any: NOT Prescribed or Continued at Discharge Cerebrovascular accident Inclusion Criteria At DC or during hospital stay patient has or had the following: CVA/TIA Diagnosis No Discharge Core Measures Meds if any: Prescribed or Continued at Discharge Meds if any: NOT Prescribed or Continued at Discharge Venous thromboembolism Inclusion Criteria VTE Diagnosis No VTE Type NONE VTE Confirmed by (Test) NONE Discharge Core Measures - Per Current guidelines, there needs to be overlap - treatment for the first 5 days of Warfarin therapy. - If discharged on Warfarin prior to 5 days of - overlap therapy, the patient will need to be - assessed for post discharge needs including - *Post discharge parental anticoagulation - *Warfarin and/or parental anticoagulation education - *Follow up date to check INR post discharge At least 5 days overlap therapy as Inpatient No Meds if any: Prescribed or Continued at Discharge Note: Overlap Therapy is Warfarin and Anticoagulant Meds if any: NOT Prescribed or Continued at Discharge
[2017-08-27 08:39] LABS: ABSOLUTE BASOPHIL COUNT 0 /CUMM (0.0-0.2); ABSOLUTE EOSINOPHIL COUNT 0.2 /CUMM (0.0-0.7); ABSOLUTE GRANULOCYTE CT 4.5 /CUMM (1.4-6.5); ABSOLUTE LYMPH COUNT 2.9 /CUMM (1.2-3.4); BASOPHIL % 0.5 % (0.0-2.0); EOSINOPHIL % 2.6 % (0-5); GRANULOCYTE % 51.6 % (42.2-75.2); HEMATOCRIT 31.1 % (37-47); MEAN CORPUSCULAR HGB CONC 33.7 G/DL (33.0-37.0); MEAN CORPUSCULAR VOLUME 89.1 FL (81.0-99.0); PLATELET COUNT 204 /CUMM (130-400); RBC DISTRIBUTION WIDTH 13.1 % (11.5-14.5); RED BLOOD CELL CT 3.49 /CUMM (4.20-5.40); WHITE BLOOD CELL COUNT 8.7 /CUMM (4.8-10.8)
[2017-08-27] MEDS ORDERED: AUGMENTIN 875-1 EACH PO (08:43)
[2017-08-27] MEDS ORDERED: OMEPRAZOLE20 M2 PO (09:12)
--- NOTE | 2017-08-28 08:51 | Discharge Summary ---
Hospital Course Allergies: Coded Allergies: aspirin (Intermediate, HIVES 08/22/17) Discharge Instructions Medications at Discharge Discharge Medications: Stop taking the following medications: Diclofenac Sodium (Diclofenac Sodium) 75 MG TABLET.DR ORAL TWICE DAILY as needed for PAIN Qty = 14 Oxycodone HCl/Acetaminophen (Percocet 5-325 MG Tablet) 5 MG-325 MG TABLET ORAL EVERY SIX HOURS NEEDED as needed for pain Qty = 20 Continue taking these medications: Metaxalone (Skelaxin) 800 MG TABLET 1 Tablet ORAL THREE TIMES DAILY as needed for BACK PAIN/SPASMS Qty = 30 Comments: NOT GIVEN IN HOSPITAL Ibuprofen (Ibuprofen) 600 MG TABLET 1 Tablet ORAL EVERY 6 HOURS NEEDED as needed for pain Qty = 50 Instructions: with food Comments: Last Taken: 08/26/17 Time: 3:50 PM Hyoscyamine Sulfate (Levsin-Sl) 0.125 MG TAB.SUBL 1-2 Tablet SUBLINGUAL EVERY 4 HOURS NEEDED as needed for abdominal cramps Qty = 60 Comments: NOT GIVEN IN HOSPITAL Ondansetron (Zofran Odt) 4 MG TAB.RAPDIS 1 Tablet SUBLINGUAL THREE TIMES DAILY as needed for nausea Qty = 10 Comments: Last Taken: 08/26/17 Time: 2:00 PM Start taking the following new medications: Omeprazole (Omeprazole) 20 MG CAPSULE.DR 40 Milligram ORAL DAILY BEFORE BREAKFAST Qty = 30 No Refills Comments: Last Taken: 08/27/17 Time: 0935 AM Amoxicillin/Potassium Clav (Augmentin 875-125 Tablet) 875 MG-125 MG TABLET 1 Tablet ORAL TWICE DAILY Qty = 14 No Refills Comments: NOT GIVEN IN HOSPITAL IV ABX GIVEN
== END 2017-08-27 11:30 | DRG 603 ==
LOC: ERH 16:58 → 2NA 22:17 → ERHI 22:17 → ENRESERV 23:31 → 2NA 08-25 00:40 → ENPENDDIS 08-27 10:22 → ENTRNSPT 08-27 11:24 → EDTRNSPTSTS 08-27 11:30 → 2NA 08-27 11:30 → EDTRNSPT 08-27 11:30 → CMPTRNSPT 08-27 11:46
PROVIDERS: Internal Medicine; Student in an Organized Health Care Education/Training Program
DX: L03.116 Cellulitis of left lower limb (principal); M54.5 Low back pain; M77.32 Calcaneal spur, left foot; M79.662 Pain in left lower leg; R59.0 Localized enlarged lymph nodes; Z87.442 Personal history of urinary calculi; Z88.6 Allergy status to analgesic agent; Z79.891 Long term (current) use of opiate analgesic; R10.9 Unspecified abdominal pain
CPT/HCPCS: 2NASP; ERO; 36592; 71046; 73630-LT; 74177; 81001; 82436; 87040; 87086; 87804; 87804-59; J1650; J2405